=== PATIENT | male | born 1945 | race Caucasian/White ===

== ENCOUNTER → 2017-06-20 | Outpatient (REF) | payer MEDICARE | LOC: M LAB REF 12:10 | PROVIDERS: ATTEND Otolaryngology | DX: C44.310 Basal cell carcinoma of skin of unspecified parts of face (principal) ==

== ENCOUNTER → 2018-03-31 | Outpatient (REF) | payer MEDICARE | LOC: M LAB REF 18:35 | DX: L72.3 Sebaceous cyst (principal) | CPT/HCPCS: 88304 ==

== ENCOUNTER → 2018-08-14 | Outpatient (CLI) | payer MEDICARE ==
[2018-08-14 13:23] LABS: BLOOD UREA NITROGEN 15 MG/DL (7-18)
[2018-08-14 13:23] LABS: CREATININE FOR GFR 1.02 MG/DL (0.70-1.30); GLOMERULAR FILTRATION RATE > 60.0 (>42)
== END ==
LOC: M SMT 10:15
DX: Z01.812 Encounter for preprocedural laboratory examination (principal); J90 Pleural effusion, not elsewhere classified
CPT/HCPCS: 82565

== ENCOUNTER → 2018-08-17 | Outpatient (CLI) | payer MEDICARE ==
[~2018-08-17] MED LIST: ISOVUE-370 76% 100ML VIAL (Q9967) As Ordered
== END ==
LOC: M RAD 07:57
DX: R91.8 Other nonspecific abnormal finding of lung field (principal); J90 Pleural effusion, not elsewhere classified
CPT/HCPCS: Q9967

== ENCOUNTER → 2019-06-18 | Outpatient (CLI) | payer MEDICARE ==
--- NOTE | 2019-06-18 08:59 | REP ---
Abdominal mesenteric arterial Doppler ultrasound: History: Pain worse after meals. Evaluate for SMA and celiac stenosis. Comparison is made with CT angiography of the chest imaging from August 17, 2018. Technique: Baseline Doppler velocities are measured in the celiac axis as well as in the proximal and mid superior mesenteric artery. The SMA arterial segments are sampled postprandial E at 10, 20, 30, and 40 minutes after meal challenge. Results: The velocities in the superior mesenteric artery increase in response to mail challenge and normal proportion however, peak systolic velocities in the superior mesenteric are quite high. Review of the CT study from July 2018 suggests stenosis just beyond the origin of the superior mesenteric artery. There is some calcific plaquing at its origin. Minimal plaquing is seen in the celiac origin without stenosis. Velocity chart: Baseline: Celiac axis PSV 113 cm/S, EDV 35 cm/S Baseline proximal SMA: PSV 183 cm/S, EDV 28 Baseline mid SMA: PSV 227, EDV 36 10 minutes post meal: Proximal SMA 256 cm/S, EDV 73 10 minutes post meal: Mid SMA PSV 432 cm/S, EDV 114 20 minutes post meal: Proximal SMA PSV 370, EDV 127 20 minutes post meal: Mid SMA PSV 636 cm/S, EDV 169 30 minutes post meal: Proximal SMA PSV 349 cm/S, EDV 99 30 minutes post meal: Mid SMA PSV 553, EDV 167 40 minutes post meal: Proximal SMA 322 cm/S, EDV 109 40 minutes post meal: Mid SMA PSV 408 cm/S, EDV 113 Impression: Findings suggestive of moderate SMA stenosis. Electronically Signed by Yoandy Willard MD 06/18/2019 08:50 A
== END ==
LOC: M RAD 06:20
PROVIDERS: ATTEND Internal Medicine Gastroenterology
DX: R10.12 Left upper quadrant pain (principal); I70.90 Unspecified atherosclerosis

== ENCOUNTER → 2019-07-25 | Outpatient (REF) | payer MEDICARE, BC | LOC: M SFHCPLAZ 19:28 | PROVIDERS: ATTEND Dermatology | DX: D23.30 Other benign neoplasm of skin of unspecified part of face (principal) ==

== ENCOUNTER → 2020-05-20 | Outpatient (CLI) | payer MEDICARE, BC ==
[~2020-05-20] MED LIST changes: +ALPR0.25 PO; +ASPI81TA26 PO; +CLOP75TA2 PO; -ISOVUE-370 76% 100ML VIAL (Q9967) As Ordered; +META1POW PO; +OMEP-218 PO; +ROSU5TAB5 PO; +VITMTA PO
--- NOTE | 2020-05-20 10:49 | REP ---
Clinical: Superior mesenteric artery stenosis. Technique: Real time vizcaino scale and color Doppler evaluation using curved array transducer. Findings: Directed ultrasound examination demonstrates superior mesenteric artery stent with normal flow characteristics and velocities. There is no evidence for superior mesenteric artery stenosis. Ultrasound examination of the celiac axis also demonstrates normal flow characteristics and velocities without stenosis or abnormality. Peak systolic velocity End-diastolic velocity Proximal SMA: 82 cm/sec 13 cm/sec Mid SMA: 105 cm/sec 22 cm/sec Celiac axis: 104 cm/sec 31 cm/sec Impression: No evidence for superior mesenteric artery stenosis. Electronically Signed by Scotty Cerna MD 05/20/2020 10:40 A
== END ==
LOC: M RAD 08:21
PROVIDERS: ATTEND Surgery
DX: K55.1 Chronic vascular disorders of intestine (principal)

== ENCOUNTER 2020-09-09 09:27 | Observation (INO) | payer BC, MEDICARE ==
[~2020-09-09] VITALS: Ht 170.2 cm; Wt 65.5 kg
[~2020-09-09 09:27] MED LIST changes: -ALPR0.25 PO; -ASPI81TA26 PO; -CLOP75TA2 PO; -META1POW PO; -OMEP-218 PO; +OMEPRAZOLE 20 MG CAP PO SCH; -ROSU5TAB5 PO; -VITMTA PO
[2020-09-09] MEDS ORDERED: OMEP-218 PO (10:04)
[2020-09-09] MEDS ORDERED: ROSU5TAB5 PO (10:04)
[2020-09-09] MEDS ORDERED: ALPR0.25 PO (10:04)
[2020-09-09] MEDS ORDERED: CLOP75TA2 PO (10:04)
[2020-09-09 10:14] LABS: BASO # 0.1 10^3/uL (0.0-0.2); BASO % 0.9 % (0.0-1.0); EOS # 0.2 10^3/uL (0.0-0.5); EOS % 3.6 % (0.0-3.0); HEMATOCRIT 44.8 % (42.0-52.0); HEMOGLOBIN 15.4 g/dl (13.5-17.5); LYMPH # 1.7 10^3/uL (1.5-5.0); LYMPH % 29.9 % (24.0-44.0); MEAN CORPUSCULAR HEMOGLOBIN 32.6 pg (27.0-33.0); MEAN CORPUSCULAR HGB CONC 34.4 g/dl (32.0-36.5); MEAN CORPUSCULAR VOLUME 94.9 fl (80.0-96.0); MONO # 0.5 10^3/uL (0.0-0.8); MONO % 8.4 % (0.0-5.0); NEUTROPHILS # 3.3 10^3/uL (1.5-8.5); PLATELET COUNT, AUTOMATED 197 10^3/uL (150-450); RED BLOOD COUNT 4.72 10^6/uL (4.30-6.10); WHITE BLOOD COUNT 5.8 10^3/uL (4.0-10.0)
--- NOTE | 2020-09-09 10:17 | REP ---
INDICATION: Syncope/near-syncope. COMPARISON: Comparison chest x-ray May 30, 2015.. TECHNIQUE: Portable AP sitting radiograph. FINDINGS: Monitoring electrodes overlie the chest. A dual lead pacemaker is been inserted via the left subclavian vein in the interval since the prior exam. Heart is not enlarged. The aorta is slightly tortuous. Pulmonary vasculature is not increased. Pleural angles are sharp. No significant bony abnormality. IMPRESSION: Pacemaker in place. No acute cardiopulmonary disease. <Electronically signed by Singh Willard > 09/09/20 [id number]
[2020-09-09] MEDS ORDERED: VITMTA PO (10:27)
[2020-09-09] MEDS ORDERED: ASPI81TA26 PO (10:27)
[2020-09-09 10:35] LABS: INR 1.07; PARTIAL THROMBOPLASTIN TIME 30.9 SECONDS (24.2-38.5); PROTHROMBIN TIME 14.1 SECONDS (12.5-14.3)
[2020-09-09 10:50] LABS: ALBUMIN 4.4 GM/DL (3.2-5.2); BILIRUBIN,DIRECT 0.3 MG/DL (0.0-0.2); BILIRUBIN,TOTAL 1.2 MG/DL (0.2-1.0); FREE T4 1.06 NG/DL (0.76-1.46); MAGNESIUM LEVEL 2.4 MG/DL (1.8-2.4); THYROID STIMULATING HORMONE 3.36 uIU/ML (0.358-3.740); TOTAL PROTEIN 7.5 GM/DL (6.4-8.2)
[2020-09-09] MEDS ORDERED: META1POW PO (10:59)
--- NOTE | 2020-09-09 11:50 | REP ---
INDICATION: syncopal episode. COMPARISON: None. TECHNIQUE: Helical scanning is acquired. 5 mm axial images were reformatted. Coronal MPR images were generated. FINDINGS: Bone window settings demonstrate an intact bony calvarium. There is no evidence of skull fracture or incidental bony calvarial lesion. The visualized paranasal sinuses appear clear. No intraorbital abnormality is seen. There is prominent vascular calcification and minimal generalized volume loss. There is a focal area of old encephalomalacia consistent with an old infarct in the right temporoparietal lobe with ex vacuo enlargement of the temporal horn of the lateral ventricle on the right. No acute infarction is appreciated. There is no evidence of acute intracranial hemorrhage. No extra-axial fluid collection, mass or midline shift is observed. IMPRESSION: Vascular calcification and mild generalized volume loss. 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 No acute infarct or bleed seen. Otherwise negative.. <Electronically signed by Singh Willard > 09/09/20 3021
[2020-09-09] MEDS ORDERED: ISOVUE-370 76% 100ML VIAL As Ordered ONE (12:51)
--- NOTE | 2020-09-09 14:27 | REP ---
INDICATION: rule out mesenteric thrombosis/ischemia COMPARISON: CT abdomen 07/09/2010. TECHNIQUE: CT angiogram of the abdomen and pelvis was performed with intravenous administration of 100 cc of Isovue 370, without oral contrast. 3D MIP reconstruction images performed. FINDINGS: Abdominal aorta and major branches: Scattered atherosclerotic calcifications without aneurysm or dissection noted. Takeoff of the SMA and celiac axis shows no evidence of stenosis on the 3D reconstruction, direct axial or curved reformatted images. There are small calcifications at the origin of the celiac axis and the SMA. There is some atherosclerotic calcification at the origin of the right renal artery without stenosis. Left renal artery was normal. There is an CLAUDINE visible. Lower thoracic aorta, common iliac and internal iliac arteries show some atherosclerotic calcifications without stenosis. The external iliac arteries were unremarkable. Lung bases: Minor dependent atelectatic change without infiltrate or effusion. Heart is not enlarged and shows a dual lead pacer with lead tips no pericardial thickening or effusion. Terminating in the right atrium and right ventricle. Liver: Normal Gallbladder: Unremarkable. Spleen: Normal. Adrenals: Normal. Pancreas: Normal. Kidneys: Show renal cysts similar to the previous study. No solid mass, hydronephrosis or stone. No hydroureter. Small and large bowel: Moderate stool scattered throughout the colon with no colitis or diverticulitis. There is diverticulosis of the left colon and sigmoid without acute inflammatory change. Small bowel loops are unremarkable. There is no perforation or free air in the abdomen or pelvis. Surgical clips in the abdominal wall from mesh hernia surgery. These are unchanged. Free fluid: None. Adenopathy: None. Appendix: Not inflamed. Pelvis: No pelvic mass. There is some pelvic surgical clips from prior prostatectomy. Extensive diverticulosis without diverticulitis in the sigmoid small bowel loops unremarkable no ventral or inguinal hernia nor inguinal adenopathy. Osseous structures: Degenerative changes in the spine without compression deformity or destructive lesion. Facet arthropathy lower lumbar levels. Visualized lower ribs intact. Sacrum, SI joints, pelvis hips, pubic bones and acetabular the show some degenerative changes without destructive lesion. Some postoperative changes in the right inguinal region. No hernia. Bladder without mass or stone. There are multiple pelvic phleboliths IMPRESSION: Mild atherosclerotic disease of the abdominal aorta and branches without evidence for mesenteric ischemia. No stenosis at the origin of the SMA or celiac axis nor any significant stenosis and renal arteries. No signs of ski juliana bowel disease. Few renal cysts. Prior abdominal wall and right inguinal hernia surgery,. Unchanged. No other significant or acute finding. <Electronically signed by Joe Jaramillo > 09/09/20 [id number]
[2020-09-09] MEDS ORDERED: ACETAMINOPHEN TAB 650MG DOSE (2X325MG) PO PRN (15:00)
[2020-09-09] MEDS ORDERED: PILL CUTTER 1 EACH XX PRN (15:15)
--- NOTE | 2020-09-09 15:18 | HPEPDOC ---
General Date of Admission 09/09/20 Date of Service: Sep 09, 2020 Chief Complaint The patient is a 75-year-old male admitted with a reason for visit of Syncope, Chest Pain. Source: Patient Exam Limitations: No limitations Timing/Duration: 24 hours Severity: Mild Associated Symptoms: Syncope History of Present Illness Patient is 75 years old male with past medical history of mesenteric thrombosis with stent placement, radical prostatectomy, cardiac pacemaker placement on 08/2018 presented to the hospital with syncope. Patient stated that earlier today he started feeling sick nausea and lightheadedness and then he syncopized. He didn't hit his head because his friend caught him. Also patient complains of dull epigastric abdominal pain for last 3-4 weeks. In ER patient was found to have positive orthostatic vital signs, CTA mild atherosclerotic disease of the abdominal aorta and branches without evidence for mesenteric ischemia. No stenosis at the origin of the SMA or celiac axis nor any significant stenosis and renal arteries. No signs of ski juliana bowel disease. Home Medications Scheduled Alprazolam (Alprazolam) 0.25 Mg Tablet, 0.25 MG PO TID, (Reported) Aspirin (Aspirin EC) 81 Mg Tablet.dr, 81 MG PO DAILY, (Reported) Clopidogrel Bisulfate (Clopidogrel) 75 Mg Tablet, 75 MG PO DAILY, (Reported) TAKES AT NOONTIME Multivitamins (Thera M Plus Tablet) 1 Each Tablet, 1 TAB PO DAILY, (Reported) Omeprazole (Omeprazole) 20 Mg Capsule.dr, 20 MG PO DAILY, (Reported) Psyllium Husk/Aspartame (Metamucil Fiber Singles Packet) 3.4 Gm Powd.pack, 1 PKT PO DAILY, (Reported) Rosuvastatin Calcium (Rosuvastatin Calcium) 5 Mg Tablet, 5 MG PO QHS, (Reported) Allergies Coded Allergies: Penicillins (Verified Allergy, Intermediate, rash, 09/09/20) bee venom protein (honey bee) (Verified Allergy, Intermediate, swelling, 09/09/20) shellfish derived (Verified Adverse Reaction, Mild, itchy and watery eyes, 09/09/20) Past Medical History Medical History mesenteric thrombosis with stent placement, prostate cancer, cardiac pacemaker placement Surgical History PROSTATECTOMY 2005 INGUINAL HERNIA REPAIR UMBILICAL HERNIA REPAIR CARDIAC PACEMEKER 08/2018 Family History I personally reviewed family history and found not pertinent Social History * Smoker: Denies Alcohol: Denies Drugs: denies A-FIB/CHADSVASC A-FIB History Current/History of A-Fib/PAF?: No Current PO Anticoag Therapy: No Review of Systems Constitutional: Denies: Chills, Fever Eyes: Denies: Pain ENT: Denies: Head Aches Skin: Denies: Rash, Lesions Pulmonary: Denies: Dyspnea Cardiovascular: Denies: Chest Pain, Palpitations Gastrointestinal: Reports: Abdominal Pain; Denies: Nausea, Vomiting Genitourinary: Denies: Dysuria Hematologic: Denies: Bruising Endocrine: Denies: Polydipsia Musculoskeletal: Denies: Back Pain Neurological: Denies: Weakness Psych: Reports: Mood Normal Physical Examination General Exam: Positive: Alert, Cooperative Eye Exam: Positive: PERRLA ENT Exam: Positive: Atraumatic Neck Exam: Positive: Supple; Negative: JVD Chest Exam: Positive: Clear to auscultation Heart Exam: Positive: Rate Normal Telemetry: Positive: No significant arrhythmia Abdomen Exam: Positive: Normal bowel sounds Extremity Exam: Negative: Clubbing, Cyanosis Skin Exam: Positive: Nl turgor and temperature Neuro Exam: Positive: Normal Gait, Strength at 5/5 X4 ext Psych Exam: Positive: Mental status NL Vital Signs Vital Signs Date Time Temp Pulse Resp B/P (MAP) Pulse Ox O2 Delivery O2 Flow Rate FiO2 09/09/20 14:30 63 145/83 (103) 99 09/09/20 09:28 97.4 20 Room Air Laboratory Data Labs 24H Laboratory Tests 2 09/09/20 09:49: Immature Granulocyte % (Auto) 0.2, Neutrophils (%) (Auto) 57.0, Lymphocytes (%) (Auto) 29.9, Monocytes (%) (Auto) 8.4H, Eosinophils (%) (Auto) 3.6H, Basophils (%) (Auto) 0.9, Neutrophils # (Auto) 3.3, Lymphocytes # (Auto) 1.7, Monocytes # (Auto) 0.5, Eosinophils # (Auto) 0.2, Basophils # (Auto) 0.1, Nucleated Red Blood Cells % (auto) 0.0, Prothrombin Time 14.1H, Prothromb Time International Ratio 1.07, Activated Partial Thromboplast Time 30.9, Magnesium Level 2.4, Total Bilirubin 1.2H, Direct Bilirubin 0.3H, Aspartate Amino Transf (AST/SGOT) 21, Alanine Aminotransferase (ALT/SGPT) 21, Alkaline Phosphatase 77, Total Protein 7.5, Albumin 4.4, Albumin/Globulin Ratio 1.4, Thyroid Stimulating Hormone (TSH) 3.360, Free Thyroxine 1.06 09/09/20 10:24: Coronavirus (COVID-19)(PCR) NEGATIVE CBC/BMP Laboratory Tests 09/09/20 09:49 Assessment/Plan Patient is 75 years old male with past medical history of mesenteric thrombosis with stent placement, radical prostatectomy, cardiac pacemaker placement on 08/2018 presented to the hospital with syncope. Patient stated that earlier today he started feeling sick nausea and lightheadedness and then he syncopized. He didn't hit his head because his friend caught him. Also patient complains of dull epigastric abdominal pain for last 3-4 weeks. In ER patient was found to have positive orthostatic vital signs, CTA mild atherosclerotic disease of the abdominal aorta and branches without evidence for mesenteric ischemia. No stenosis at the origin of the SMA or celiac axis nor any significant stenosis and renal arteries. No signs of ski juliana bowel disease. Problems (1) Syncope Status: Acute Problem Text: Most likely orthostatic syncope. Patient stated that after radical prostatectomy he has nocturia up to 5-6 times per night. He tried to restrict his fluid intake. Telemetry EKG does not show any ischemic changes IV fluid PT OT (2) Abdominal pain Status: Chronic Problem Text: Patient complains of epigastric abdominal pain CTA negative for mesenteric thrombosis I will increase the dose of omeprazole I will check H. pylori Patient will need to need follow-up with GI team in the outpatient settings Plan / VTE VTE Prophylaxis Ordered?: Yes JULIAN SOMMERS DO Sep 09, 2020 15:18
--- NOTE | 2020-09-09 16:36 | ECGEPIP ---
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
[2020-09-09 17:50] VITALS: BP 150/86
[2020-09-09] MEDS: ASPIRIN 81 MG ENTERIC TAB PO SCH (18:11)
[2020-09-09] MEDS: ALPRAZolam 0.25 MG TAB PO SCH ×2 (18:12→20:32)
[2020-09-09] MEDS: CLOPIDOGREL 75 MG TAB PO SCH (18:12)
[2020-09-09] MEDS: NS 1,000 ML IV SCH ×2 (18:12→23:50)
[2020-09-09] MEDS: MULTIVITAMINS/MINERALS THERAP 1 TAB PO SCH (18:12)
[2020-09-09] MEDS ORDERED: SLF 3 ML SYR IV PRN (18:30)
[2020-09-09 20:00] VITALS: BP 141/81
[2020-09-09] MEDS: HEPARIN SOD (PORCINE) 5000UNITS/ML 1ML VIAL/SYRINGE SC SCH ×2 (20:32→20:34)
[2020-09-09] MEDS: SLF 3 ML SYR IV SCH (20:32)
[2020-09-09] MEDS ORDERED: ROSUVASTATIN 10 MG TAB (CRESTOR) PO SCH (21:00)
[2020-09-10] VITALS: BP 135/69
[2020-09-10] MEDS: SLF 3 ML SYR IV SCH (04:58)
[2020-09-10 05:39] LABS: HEMATOCRIT 38.4 % (42.0-52.0); MEAN CORPUSCULAR HEMOGLOBIN 33.2 pg (27.0-33.0); MEAN CORPUSCULAR HGB CONC 34.6 g/dl (32.0-36.5); MEAN CORPUSCULAR VOLUME 95.8 fl (80.0-96.0); PLATELET COUNT, AUTOMATED 160 10^3/uL (150-450); RED BLOOD COUNT 4.01 10^6/uL (4.30-6.10); WHITE BLOOD COUNT 5.4 10^3/uL (4.0-10.0)
[2020-09-10 05:47] LABS: HEMOGLOBIN 13.3 g/dl (13.5-17.5)
[2020-09-10 06:14] LABS: BLOOD UREA NITROGEN 14 MG/DL (7-18); CALCIUM LEVEL 8.3 MG/DL (8.8-10.2); CARBON DIOXIDE LEVEL 26 MEQ/L (21-32); CHLORIDE LEVEL 110 MEQ/L (98-107); CREATININE FOR GFR 0.93 MG/DL (0.70-1.30); GLOMERULAR FILTRATION RATE > 60.0 (>42); GLUCOSE, FASTING 64 MG/DL (70-100); MAGNESIUM LEVEL 2.3 MG/DL (1.8-2.4); POTASSIUM SERUM 4.4 MEQ/L (3.5-5.1); SODIUM LEVEL 140 MEQ/L (136-145)
[2020-09-10 07:40] VITALS: BP 148/75
[2020-09-10] MEDS: MULTIVITAMINS/MINERALS THERAP 1 TAB PO SCH ×2 (09:00→09:55)
[2020-09-10] MEDS: HEPARIN SOD (PORCINE) 5000UNITS/ML 1ML VIAL/SYRINGE SC SCH ×2 (09:00→09:58)
[2020-09-10] MEDS: OMEPRAZOLE 20 MG CAP PO SCH ×2 (09:00→09:57)
[2020-09-10] MEDS: CLOPIDOGREL 75 MG TAB PO SCH ×2 (09:00→09:55)
[2020-09-10] MEDS: ALPRAZolam 0.25 MG TAB PO SCH ×2 (09:00→09:55)
[2020-09-10] MEDS: ASPIRIN 81 MG ENTERIC TAB PO SCH ×2 (09:00→09:55)
--- NOTE | 2020-09-10 15:51 | DS.PDOC ---
Discharge Summary General Date of Admission Sep 09, 2020 at 09:28 Date of Discharge 09/10/20 Discharge Summary PROCEDURES PERFORMED DURING STAY: [None]. ADMITTING DIAGNOSES: Syncope Abdominal pain DISCHARGE DIAGNOSES: Syncope Abdominal pain COMPLICATIONS/CHIEF COMPLAINT: Syncope. HISTORY OF PRESENT ILLNESS: Patient is 75 years old male with past medical history of mesenteric thrombosis with stent placement, radical prostatectomy, cardiac pacemaker placement on 08/2018 presented to the hospital with syncope. Patient stated that earlier today he started feeling sick nausea and lightheadedness and then he syncopized. He didn't hit his head because his friend caught him. Also patient complains of dull epigastric abdominal pain for last 3-4 weeks. In ER patient was found to have positive orthostatic vital signs, CTA mild atherosclerotic disease of the abdominal aorta and branches without evidence for mesenteric ischemia. No stenosis at the origin of the SMA or celiac axis nor any significant stenosis and renal arteries. No signs of ski juliana bowel disease. HOSPITAL COURSE: Following issue addressed Syncope Most likely orthostatic syncope. Patient stated that after radical prostatectomy he has nocturia up to 5-6 times per night. He tried to restrict his fluid intake. Telemetry EKG does not show any ischemic changes IV fluid PT OT (2) Abdominal pain Patient complains of epigastric abdominal pain CTA negative for mesenteric thrombosis I will increase the dose of omeprazole Await H. pylori Patient will need to need follow-up with GI team in the outpatient settings DISCHARGE MEDICATIONS: Please see below. ALLERGIES: Please see below. PHYSICAL EXAMINATION ON DISCHARGE: Physical Examination General Exam: Positive: Alert, Cooperative Eye Exam: Positive: PERRLA ENT Exam: Positive: Atraumatic Neck Exam: Positive: Supple; Negative: JVD Chest Exam: Positive: Clear to auscultation Heart Exam: Positive: Rate Normal Telemetry: Positive: No significant arrhythmia Abdomen Exam: Positive: Normal bowel sounds Extremity Exam: Negative: Clubbing, Cyanosis Skin Exam: Positive: Nl turgor and temperature Neuro Exam: Positive: Normal Gait, Strength at 5/5 X4 ext Psych Exam: Positive: Mental status NL LABORATORY DATA: Please see below. IMAGING: rule out mesenteric thrombosis/ischemia COMPARISON: CT abdomen 07/09/2010. TECHNIQUE: CT angiogram of the abdomen and pelvis was performed with intravenous administration of 100 cc of Isovue 370, without oral contrast. 3D MIP reconstruction images performed. FINDINGS: Abdominal aorta and major branches: Scattered atherosclerotic calcifications without aneurysm or dissection noted. Takeoff of the SMA and celiac axis shows no evidence of stenosis on the 3D reconstruction, direct axial or curved reformatted images. T here are small calcifications at the origin of the celiac axis and the SMA. There is some atherosclerotic calcification at the origin of the right renal artery without stenosis. Left renal artery was normal. There is an CLAUDINE visible. Lower thoracic aorta, common iliac and internal iliac arteries show some atherosclerotic calcifications without stenosis. The external iliac arteries were unremarkable. Lung bases: Minor dependent atelectatic change without infiltrate or effusion. Heart is not enlarged and shows a dual lead pacer with lead tips no pericardial thickening or effusion. Terminating in the right atrium and right ventricle. Liver: Normal Gallbladder: Unremarkable. Spleen: Normal. Adrenals: Normal. Pancreas: Normal. Kidneys: Show renal cysts similar to the previous study. No solid mass, hydronephrosis or stone. No hydroureter. Small and large bowel: Moderate stool scattered throughout the colon with no colitis or diverticulitis. There is diverticulosis of the left colon and sigmoid without acute inflammatory change. Small bowel loops are unremarkable. There is no perforation or free air in the abdomen or pelvis. Surgical clips in the abdominal wall from mesh hernia surgery. These are unchanged. Free fluid: None. [facility] NAME: MARIMAR CORONA DATE OF : 1945 AGE: 75 SEX: M REPORT #: [id number] ROOM: ED TECHNOLOGIST: [place] [id number] DOCTOR: YOLANDE LEAL DO Ordered for Date&Time: 09/09/20 1237 cc: [~ rep ct ivnm] Service Date&Time: 09/09/20 1257 This report is in Signed status. If this report is in a DRAFT status it has not yet been reviewed by the radiologist for accuracy. Thank you for having your radiology procedures performed at [facility] RADIOLOGY REPORT Date&Time printed: [~ rep prt dt last] [~ rep prt tm last] Page 2 of [address] [address] RADIOLOGY REPORT This report is in Signed status. If this report is in a DRAFT status it has not yet been reviewed by the radiologist for accuracy. Thank you for having your radiology procedures performed at [facility] RADIOLOGY REPORT Date&Time printed: [~ rep prt dt last] [~ rep prt tm last] Page 1 of 1 Adenopathy: None. Appendix: Not inflamed. Pelvis: No pelvic mass. There is some pelvic surgical clips from prior prostatectomy. Extensive diverticulosis without diverticulitis in the sigmoid small bowel loops unremarkable no ventral or inguinal hernia nor inguinal adenopathy. Osseous structures: Degenerative changes in the spine without compression deformity or destructive lesion. Facet arthropathy lower lumbar levels. Visualized lower ribs intact. Sacrum, SI joints, pelvis hips, pubic bones and acetabular the show some degenerative changes without destructive lesion. Some postoperative changes in the right inguinal region. No hernia. Bladder without mass or stone. There are multiple pelvic phleboliths IMPRESSION: Mild atherosclerotic disease of the abdominal aorta and branches without evidence for mesenteric ischemia. No stenosis at the origin of the SMA or celiac axis nor any significant stenosis and renal arteries. No signs of ski juliana bowel disease. Few renal cysts. Prior abdominal wall and right inguinal hernia surgery,. Unchanged. No other significant or acute finding. <Electronically signed by Joe Jaramillo > 09/09/20 1423 DD: Joe Jaramillo MD 09/09/20 141 DT: CECILE 09/09/20 142 DS: BECKI 09/09/20 1411 09/09/20 1411 [~ rep ct labl] PROGNOSIS: Fair ACTIVITY: As tolerated DIET: Cardiac DISPOSITION: 01 Home, Self-Care. ITEMS TO FOLLOWUP ON ON OUTPATIENT: Follow-up with PCP DISCHARGE CONDITION: [Stable]. TIME SPENT ON DISCHARGE: Greater than 30 minutes. Vital Signs/I&Os Vital Signs Date Time Temp Pulse Resp B/P (MAP) Pulse Ox O2 Delivery O2 Flow Rate FiO2 09/10/20 07:40 98.9 66 18 148/75 (99) 99 Room Air I&O- Last 24 Hours up to 6 AM 09/10/20 06:00 Intake Total 0 ml Output Total 375 ml Balance -375 ml Laboratory Data Labs 24H Laboratory Tests 2 09/09/20 19:20: 09/10/20 05:10: Nucleated Red Blood Cells % (auto) 0.0, Anion Gap 4L, Glomerular Filtration Rate > 60.0, Calcium Level 8.3L, Magnesium Level 2.3 09/10/20 09:47: Lab Scanned Report Miscellaneous Lab CBC/BMP Laboratory Tests 09/10/20 05:10 Discharge Medications Scheduled Alprazolam (Alprazolam) 0.25 Mg Tablet, 0.25 MG PO TID, (Reported) Aspirin (Aspirin EC) 81 Mg Tablet.dr, 81 MG PO DAILY, (Reported) Clopidogrel Bisulfate (Clopidogrel) 75 Mg Tablet, 75 MG PO DAILY, (Reported) TAKES AT NOONTIME Multivitamins (Thera M Plus Tablet) 1 Each Tablet, 1 TAB PO DAILY, (Reported) Omeprazole (Omeprazole) 20 Mg Capsule.dr, 20 MG PO DAILY, (Reported) Psyllium Husk/Aspartame (Metamucil Fiber Singles Packet) 3.4 Gm Powd.pack, 1 PKT PO DAILY, (Reported) Rosuvastatin Calcium (Rosuvastatin Calcium) 5 Mg Tablet, 5 MG PO QHS, (Reported) Allergies Coded Allergies: Penicillins (Verified Allergy, Intermediate, rash, 09/09/20) bee venom protein (honey bee) (Verified Allergy, Intermediate, swelling, 09/09/20) shellfish derived (Verified Adverse Reaction, Mild, itchy and watery eyes, 09/09/20) JULIAN SOMMERS DO Sep 10, 2020 15:51
== END 2020-09-10 12:26 | disposition home or self-care (01) ==
LOC: M ED 09:27 → M ED INP 09:28 → ENRESERV 15:59 → M PCU 18:00
PROVIDERS: ADMIT Internal Medicine; ATTEND Internal Medicine
DX: R55 Syncope and collapse (principal); R10.9 Unspecified abdominal pain; Z95.0 Presence of cardiac pacemaker; Z88.0 Allergy status to penicillin; Z79.82 Long term (current) use of aspirin; Z79.899 Other long term (current) drug therapy; Z91.013 Allergy to seafood; Z91.030 Bee allergy status
CPT/HCPCS: 36415; 70450; 71045; 74174; 80047; 80048; 80076; 83605; 83735; 84439; 84443; 84484; 85025; 85027; 85610; 85730; 87338; 93005; 93041; 94760; 96360; 96361; 97161; 99285; G0378; Q9967; U0002

== ENCOUNTER → 2021-02-04 | Outpatient (CLI) | payer MEDICARE ==
[~2021-02-04] MED LIST changes: +ALPR0.25 PO; +ASPI81TA26 PO; +CLOP75TA2 PO; +META1POW PO; +OMEP-218 PO; -OMEPRAZOLE 20 MG CAP PO SCH; +ROSU5TAB5 PO; +VITMTA PO
--- NOTE | 2021-02-04 09:35 | REP ---
INDICATION: SUPERIOR MESENTERIC ATERY STENOSIS COMPARISON: 05/20/2020 TECHNIQUE: Real time viczaino scale ultrasound examination using curved array transducer. Color Doppler evaluation performed. FINDINGS: Patient is status post superior mesenteric artery stent placement which appears patent. Proximal superior mesenteric artery demonstrates normal arterial wave pattern with a peak systolic velocity at 105 cm/sec and end-diastolic velocity at 15.3 cm/sec. Mid superior mesenteric artery demonstrates normal arterial wave pattern with a peak systolic velocity of 121 cm/sec. IMPRESSION: Patent superior mesenteric artery and stent. <Electronically signed by Scotty Cerna > 02/04/21 0931
== END ==
LOC: M RAD 08:08
PROVIDERS: ATTEND Surgery
DX: K55.1 Chronic vascular disorders of intestine (principal)

== ENCOUNTER → 2021-02-28 | Outpatient (CLI) | payer MEDICARE | LOC: M LABSMTC 10:18 | PROVIDERS: ATTEND Anesthesiology | DX: Z01.818 Encounter for other preprocedural examination (principal); Z20.822 Contact with and (suspected) exposure to COVID-19 ==

== ENCOUNTER 2021-03-05 10:16 | Day surgery (SDC) | payer MEDICARE ==
[~2021-03-05] VITALS: Ht 170.2 cm; Wt 61.7 kg
[~2021-03-05 10:16] MED LIST changes: +NS 1,000 ML IV ONE
[2021-03-05] MEDS ORDERED: LIDOCAINE 2% MDV 20ML VIAL As Ordered ONE (11:51)
[2021-03-05] MEDS ORDERED: propofoL 200 MG/20 ML VIAL As Ordered ONE (11:51)
[2021-03-05] MEDS ORDERED: fentaNYL 100 MCG/2 ML INJECTION (J3010) As Ordered ONE (11:51)
--- NOTE | 2021-03-05 12:08 | ROOR ---
Patient Name: Frank Teixeira Procedure Date: 03/05/2021 11:49 AM Date of : 1945 Age: 76 Room: [facility] Gender: Male Note Status: Finalized Procedure: Upper GI endoscopy Indications: Epigastric abdominal pain Providers: Carlton Alamo Jr, MD Referring MD: TRISTAN BEEBE DO Requesting Provider: Medicines: Propofol per Anesthesia Complications: No immediate complications. Procedure: Pre-Anesthesia Assessment: - Prior to the procedure, a History and Physical was performed, and patient medications and allergies were reviewed. The patient is competent. The risks and benefits of the procedure and the sedation options and risks were discussed with the patient. All questions were answered and informed consent was obtained. Patient identification and proposed procedure were verified by the physician and the nurse in the pre-procedure area and in the procedure room. Mental Status Examination: alert and oriented. Airway Examination: normal oropharyngeal airway and neck mobility. Respiratory Examination: clear to auscultation. CV Examination: normal. ASA Grade Assessment: II - A patient with mild systemic disease. After reviewing the risks and benefits, the patient was deemed in satisfactory condition to undergo the procedure. The anesthesia plan was to use moderate sedation / analgesia (conscious sedation). Immediately prior to administration of medications, the patient was re-assessed for adequacy to receive sedatives. The heart rate, respiratory rate, oxygen saturations, blood pressure, adequacy of pulmonary ventilation, and response to care were monitored throughout the procedure. The physical status of the patient was re-assessed after the procedure. The Endoscope was introduced through the mouth, and advanced to the second part of duodenum. The upper GI endoscopy was accomplished without difficulty. The patient tolerated the procedure well. Findings: The upper third of the esophagus, middle third of the esophagus and lower third of the esophagus were normal. Abnormal motility was noted in the middle third of the esophagus. There is spasticity of the esophageal body. The distal esophagus/lower esophageal sphincter is open. The cardia, gastric fundus, gastric body, gastric antrum, prepyloric region of the stomach and pylorus were normal. Patchy mildly erythematous mucosa without active bleeding and with no stigmata of bleeding was found in the duodenal bulb. Biopsies were taken with a cold forceps for histology. The first portion of the duodenum and second portion of the duodenum were normal. Impression: - Normal upper third of esophagus, middle third of esophagus and lower third of esophagus. - Abnormal esophageal motility, consistent with esophageal spasm. - Normal cardia, gastric fundus, gastric body, antrum, prepyloric region of the stomach and pylorus. - Erythematous duodenopathy. Biopsied. - Normal first portion of the duodenum and second portion of the duodenum. Recommendation: - Discharge patient to home (ambulatory). - Return to my office as previously scheduled. 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 All rights reserved. The codes documented in this report are preliminary and upon custodial operations manager review may be revised to meet current compliance requirements. Carlton Alamo MD Carlton Alamo Jr, MD 03/05/2021 12:07:27 PM Electronically signed by Carlton Alamo Jr, MD Number of Addenda: 0 Note Initiated On: 03/05/2021 11:49 AM Estimated Blood Loss: Estimated blood loss: none.
[2021-03-05 12:35] VITALS: BP 142/80
== END 2021-03-05 12:48 | disposition home or self-care (01) ==
LOC: M OPP 10:16
PROVIDERS: ATTEND Surgery
DX: K22.4 Dyskinesia of esophagus (principal); K31.89 Other diseases of stomach and duodenum; R10.13 Epigastric pain; Z95.5 Presence of coronary angioplasty implant and graft; Z79.82 Long term (current) use of aspirin; Z79.899 Other long term (current) drug therapy; Z91.030 Bee allergy status; Z91.013 Allergy to seafood; Z88.0 Allergy status to penicillin; Z85.46 Personal history of malignant neoplasm of prostate
CPT/HCPCS: 43239; 88305; J3010

== ENCOUNTER → 2021-04-10 | Outpatient (CLI) | payer MEDICARE ==
[~2021-04-10] MED LIST changes: +E-Z-GAS II EFFERVESCENT PACKET (SODIUM BICARB./CITRIC ACID/SIMETHICONE) As Ordered ONE; +E-Z-HD 98% w/w 340GM SUSP BTL As Ordered ONE; +E-Z-PAQUE 96% w/w SUSP 176GM BTL As Ordered ONE; -NS 1,000 ML IV ONE
--- NOTE | 2021-04-10 18:33 | REP ---
INDICATION: CHEST PAIN WITH SWALLOWING EPIGASTRIC PAIN. COMPARISON: None. TECHNIQUE: This procedure was performed under the direct supervision of Dr. Interiano. Images were reviewed with Dr. Interiano. Liquid barium and gas producing granules were given in the erect position as well as liquid barium in the prone oblique positions in order to perform a double contrast esophagram examination. A combination of fluoroscopy, spot films and last image hold technology was utilized. 0.9 minutes of fluoro time was utilized for this procedure. FINDINGS: A single view PA chest x-ray is submitted as a pocket and pulley machine operator film. There is no change compared to a previous chest x-ray performed on 09/09/2020. The oral and pharyngeal stages of deglutition are unremarkable. Esophageal transport is prompt and efficient. There is no stricture or mucosal ring. There is a sliding-type hiatal hernia. There is gastroesophageal reflux demonstrated to the level of the jason. There is a feline esophagus appearance which may represent early esophagitis. IMPRESSION: There is a sliding-type hiatal hernia. There is gastroesophageal reflux demonstrated to the level of the jason. There is a feline esophagus appearance which may represent early esophagitis. <Electronically signed by Aidan Gaspar > 04/10/21 [id number] <Electronically signed by Kael Interiano > 04/10/21 [id number]
== END ==
LOC: M RAD 08:24
PROVIDERS: ATTEND Surgery
DX: R10.13 Epigastric pain (principal); R07.9 Chest pain, unspecified

== ENCOUNTER → 2021-08-27 | Outpatient (CLI) | payer MEDICARE ==
[~2021-08-27] MED LIST changes: -E-Z-GAS II EFFERVESCENT PACKET (SODIUM BICARB./CITRIC ACID/SIMETHICONE) As Ordered ONE; -E-Z-HD 98% w/w 340GM SUSP BTL As Ordered ONE; -E-Z-PAQUE 96% w/w SUSP 176GM BTL As Ordered ONE
--- NOTE | 2021-08-27 11:29 | REP ---
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 COMPARISON: 02/04/2021. TECHNIQUE: Duplex Doppler evaluation of mesenteric arteries performed. FINDINGS: The peak systolic velocity in the superior abdominal aorta is 53 centimeters/second. 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 The peak systolic velocity at the origin of the superior mesenteric artery is 86 centimeter/second, mid aspect 132 to 149 cm per sec. At the origin of the celiac axis peak systolic velocity is 110-116 centimeter/second. At the origin of the inferior mesenteric artery the peak systolic velocity is 104 centimeter/second, more distally 157 centimeters/second. IMPRESSION: No duplex Doppler sonographic evidence of significant stenosis of the mesenteric arteries. <Electronically signed by Kael Interiano > 08/27/21 [id number]
== END ==
LOC: M RAD 08:51
PROVIDERS: ATTEND Surgery
DX: K55.1 Chronic vascular disorders of intestine (principal)

== ENCOUNTER 2021-09-19 22:12 | Inpatient (IN) | payer MEDICARE ==
[~2021-09-19] VITALS: Ht 170.2 cm; Wt 61.7 kg
[~2021-09-19 22:12] MED LIST changes: +OMEP-173 PO; -OMEP-218 PO
[2021-09-19 23:37] LABS: HEMATOCRIT 39.2 % (42.0-52.0); HEMOGLOBIN 13.1 g/dl (13.5-17.5); MEAN CORPUSCULAR HEMOGLOBIN 31.7 pg (27.0-33.0); MEAN CORPUSCULAR HGB CONC 33.4 g/dl (32.0-36.5); MEAN CORPUSCULAR VOLUME 94.9 fl (80.0-96.0); PLATELET COUNT, AUTOMATED 194 10^3/uL (150-450); RED BLOOD COUNT 4.13 10^6/uL (4.30-6.10); WHITE BLOOD COUNT 6.6 10^3/uL (4.0-10.0)
[2021-09-20 00:02] LABS: CK-MB VALUE MASS < 1.0 NG/ML (<3.6); CPK CREATINE PHOSPHOKINASE 62 U/L (39-308); MB/CK RELATIVE INDEX 1.61 (< OR =4); TROPONIN I < 0.02 NG/ML (< 0.10)
[2021-09-20 00:12] LABS: ACETAMINOPHEN LEVEL < 2.0 UG/ML (10.0-30.0); ALBUMIN 3.5 GM/DL (3.2-5.2); ALT/SGPT 18 U/L (12-78); BILIRUBIN,DIRECT 0.3 MG/DL (0.0-0.2); BILIRUBIN,TOTAL 1.1 MG/DL (0.2-1.0); BLOOD UREA NITROGEN 19 MG/DL (7-18); CALCIUM LEVEL 8.6 MG/DL (8.8-10.2); CARBON DIOXIDE LEVEL 29 MEQ/L (21-32); CHLORIDE LEVEL 108 MEQ/L (98-107); CREATININE FOR GFR 1.11 MG/DL (0.70-1.30); ETHYL ALCOHOL (ETHANOL) < 0.003 % (0.000-0.010); GLOMERULAR FILTRATION RATE > 60.0 (>42); GLUCOSE, FASTING 76 MG/DL (70-100); POTASSIUM SERUM 4.4 MEQ/L (3.5-5.1); SALICYLATE LEVEL < 1.7 MG/DL (5.0-30.0); SODIUM LEVEL 142 MEQ/L (136-145); TOTAL PROTEIN 6.5 GM/DL (6.4-8.2)
[2021-09-20] MEDS ORDERED: CLON0.5T2 PO (00:25)
[2021-09-20] MEDS ORDERED: HOME MED LIST COMPLETE! XX SCH (00:55)
[2021-09-20 01:52] LABS: RSV AMPLIFICATION NEGATIVE (NEGATIVE)
[2021-09-20] MEDS ORDERED: diazePAM 10MG/2ML SYRINGE (J3360 PER 5MG) IV PRN (04:10)
[2021-09-20] MEDS: ROSUVASTATIN 10 MG TAB (CRESTOR) PO SCH ×2 (07:21→20:41)
[2021-09-20] MEDS: MULTIVITAMINS/MINERALS THERAP 1 TAB PO SCH (09:01)
[2021-09-20] MEDS: ASPIRIN 81MG ENTERIC TABLET PO SCH (09:01)
[2021-09-20] MEDS: CLOPIDOGREL 75 MG TAB PO SCH (11:30)
[2021-09-20] MEDS: METAMUCIL (PSYLLIUM) PACKET PO SCH (11:30)
[2021-09-20] MEDS: clonazePAM 0.5 MG TAB PO SCH (11:30)
[2021-09-20] MEDS: OMEPRAZOLE 20MG CAP PO SCH (11:30)
[2021-09-20] MEDS: ENOXAPARIN 40MG/0.4ML SYRINGE (J1650 PER 10MG) SC SCH (11:31)
[2021-09-20 12:27] LABS: HEMATOCRIT 40.8 % (42.0-52.0); MEAN CORPUSCULAR HEMOGLOBIN 32.4 pg (27.0-33.0); MEAN CORPUSCULAR HGB CONC 34.3 g/dl (32.0-36.5); MEAN CORPUSCULAR VOLUME 94.4 fl (80.0-96.0); PLATELET COUNT, AUTOMATED 200 10^3/uL (150-450); RED BLOOD COUNT 4.32 10^6/uL (4.30-6.10); WHITE BLOOD COUNT 7.5 10^3/uL (4.0-10.0)
[2021-09-20 13:01] LABS: ALBUMIN 3.9 GM/DL (3.2-5.2); ALT/SGPT 20 U/L (12-78); BILIRUBIN,TOTAL 1.2 MG/DL (0.2-1.0); BLOOD UREA NITROGEN 15 MG/DL (7-18); CALCIUM LEVEL 9.3 MG/DL (8.8-10.2); CARBON DIOXIDE LEVEL 30 MEQ/L (21-32); CHLORIDE LEVEL 106 MEQ/L (98-107); CREATININE FOR GFR 0.91 MG/DL (0.70-1.30); GLOMERULAR FILTRATION RATE > 60.0 (>42); GLUCOSE, FASTING 94 MG/DL (70-100); MAGNESIUM LEVEL 2.6 MG/DL (1.8-2.4); POTASSIUM SERUM 4.3 MEQ/L (3.5-5.1); SODIUM LEVEL 140 MEQ/L (136-145); TOTAL PROTEIN 7.4 GM/DL (6.4-8.2)
[2021-09-20 16:00] VITALS: BP 150/77
[2021-09-20] MEDS: FOLIC ACID 1 MG TAB PO SCH (16:26)
[2021-09-20] MEDS: THIAMINE 100 MG TAB PO SCH (16:26)
[2021-09-20 19:00] VITALS: O2SAT 99
[2021-09-20 20:00] VITALS: BP 111/64; O2SAT 96
[2021-09-20 21:00] VITALS: O2SAT 96
[2021-09-20 22:00] VITALS: O2SAT 96
[2021-09-20 23:00] VITALS: O2SAT 95
[2021-09-21] VITALS: BP 101/56; O2SAT 96
[2021-09-21 04:00] VITALS: BP 100/56
[2021-09-21 08:00] VITALS: BP 118/70
[2021-09-21] MEDS: ASPIRIN 81MG ENTERIC TABLET PO SCH (08:21)
[2021-09-21] MEDS: ENOXAPARIN 40MG/0.4ML SYRINGE (J1650 PER 10MG) SC SCH (08:21)
[2021-09-21] MEDS: OMEPRAZOLE 20MG CAP PO SCH (08:22)
[2021-09-21] MEDS: MULTIVITAMINS/MINERALS THERAP 1 TAB PO SCH (08:22)
[2021-09-21] MEDS: FOLIC ACID 1 MG TAB PO SCH (08:22)
[2021-09-21] MEDS: THIAMINE 100 MG TAB PO SCH (08:22)
[2021-09-21] MEDS: clonazePAM 0.5 MG TAB PO SCH (08:22)
[2021-09-21 12:00] VITALS: BP 153/72
[2021-09-21] MEDS: METAMUCIL (PSYLLIUM) PACKET PO SCH (12:13)
[2021-09-21] MEDS: CLOPIDOGREL 75 MG TAB PO SCH (12:13)
[2021-09-21 16:00] VITALS: BP 117/64
[2021-09-21 20:00] VITALS: BP 108/57
[2021-09-21] MEDS: ROSUVASTATIN 10 MG TAB (CRESTOR) PO SCH (20:14)
[2021-09-22] VITALS (7 sets, daily range): BP systolic 107–135; BP diastolic 61–73; O2SAT 96–99
[2021-09-22] MEDS: ASPIRIN 81MG ENTERIC TABLET PO SCH (08:07)
[2021-09-22] MEDS: THIAMINE 100 MG TAB PO SCH (08:07)
[2021-09-22] MEDS: clonazePAM 0.5 MG TAB PO SCH (08:07)
[2021-09-22] MEDS: MULTIVITAMINS/MINERALS THERAP 1 TAB PO SCH (08:08)
[2021-09-22] MEDS: OMEPRAZOLE 20MG CAP PO SCH (08:08)
[2021-09-22] MEDS: FOLIC ACID 1 MG TAB PO SCH (08:08)
[2021-09-22] MEDS: ENOXAPARIN 40MG/0.4ML SYRINGE (J1650 PER 10MG) SC SCH (08:11)
[2021-09-22] MEDS: METAMUCIL (PSYLLIUM) PACKET PO SCH (08:14)
[2021-09-22] MEDS ORDERED: THIA100TA PO (11:14)
[2021-09-22] MEDS ORDERED: FOLI1TAB11 PO (11:14)
[2021-09-22] MEDS: CLOPIDOGREL 75 MG TAB PO SCH (12:10)
== END 2021-09-22 13:21 | DRG 918 ==
LOC: M ED 22:12 → M ED INP 09-20 00:28 → ENRESERV 09-20 14:26 → M PCU 09-20 15:50
PROVIDERS: ADMIT Internal Medicine; ATTEND Internal Medicine
DX: T42.4X2A Poisoning by benzodiazepines, intentional self-harm, initial encounter (principal); F10.10 Alcohol abuse, uncomplicated; K21.9 Gastro-esophageal reflux disease without esophagitis; F41.9 Anxiety disorder, unspecified; F32.9 Major depressive disorder, single episode, unspecified; Z86.73 Personal history of transient ischemic attack (TIA), and cerebral infarction without residual deficits; Z79.82 Long term (current) use of aspirin; Z79.899 Other long term (current) drug therapy; Z88.0 Allergy status to penicillin; Z91.030 Bee allergy status; Z91.013 Allergy to seafood; Z95.0 Presence of cardiac pacemaker; Z95.2 Presence of prosthetic heart valve; F17.200 Nicotine dependence, unspecified, uncomplicated; E16.2 Hypoglycemia, unspecified

== ENCOUNTER 2021-09-22 11:13 | Inpatient (IN) | payer MEDICARE ==
[~2021-09-22] VITALS: Ht 170.2 cm; Wt 61.2 kg
[~2021-09-22 11:13] MED LIST changes: +CLON0.5T2 PO
[2021-09-22] MEDS ORDERED: FOLI1TAB11 PO (11:14)
[2021-09-22] MEDS ORDERED: THIA100TA PO (11:14)
[2021-09-22] MEDS ORDERED: MAALOX 30 ML SUSP *UDC PO PRN (11:40)
[2021-09-22] MEDS ORDERED: IBUPROFEN 400MG TAB PO PRN (11:40)
[2021-09-22] MEDS ORDERED: MOM 30ML SUSPENSION UDC PO PRN (11:40)
[2021-09-22] MEDS ORDERED: HOME MED LIST COMPLETE! XX SCH (14:05)
[2021-09-22 19:12] VITALS: BP 151/80
[2021-09-22] MEDS: ROSUVASTATIN 10 MG TAB (CRESTOR) PO SCH (20:13)
[2021-09-23 06:28] VITALS: BP 134/65
[2021-09-23] MEDS: ASPIRIN 81MG ENTERIC TABLET PO SCH (08:02)
[2021-09-23] MEDS: FOLIC ACID 1 MG TAB PO SCH (08:02)
[2021-09-23] MEDS: clonazePAM 0.5 MG TAB PO SCH (08:02)
[2021-09-23] MEDS: METAMUCIL (PSYLLIUM) PACKET PO SCH (08:02)
[2021-09-23] MEDS: MULTIVITAMINS/MINERALS THERAP 1 TAB PO SCH (08:02)
[2021-09-23] MEDS: THIAMINE 100 MG TAB PO SCH (08:02)
[2021-09-23] MEDS: OMEPRAZOLE 20MG CAP PO SCH (08:03)
[2021-09-23] MEDS ORDERED: CLOPIDOGREL 75 MG TAB PO SCH (09:00)
[2021-09-23] MEDS: CLOPIDOGREL 75 MG TAB PO SCH (11:19)
[2021-09-23] MEDS: SERTRALINE HCL 25 MG TABLET PO SCH (11:19)
[2021-09-23 17:29] VITALS: BP 125/59
[2021-09-23] MEDS: ROSUVASTATIN 10 MG TAB (CRESTOR) PO SCH (20:15)
[2021-09-24 06:47] VITALS: BP 135/61
[2021-09-24] MEDS: METAMUCIL (PSYLLIUM) PACKET PO SCH (08:33)
[2021-09-24] MEDS: clonazePAM 0.5 MG TAB PO SCH (08:33)
[2021-09-24] MEDS: FOLIC ACID 1 MG TAB PO SCH (08:34)
[2021-09-24] MEDS: OMEPRAZOLE 20MG CAP PO SCH (08:34)
[2021-09-24] MEDS: SERTRALINE HCL 25 MG TABLET PO SCH (08:34)
[2021-09-24] MEDS: THIAMINE 100 MG TAB PO SCH (08:34)
[2021-09-24] MEDS: MULTIVITAMINS/MINERALS THERAP 1 TAB PO SCH (08:34)
[2021-09-24] MEDS: ASPIRIN 81MG ENTERIC TABLET PO SCH (08:34)
[2021-09-24] MEDS: CLOPIDOGREL 75 MG TAB PO SCH (11:50)
[2021-09-24 18:35] VITALS: BP 132/66
[2021-09-24] MEDS: traZODone 50 MG TAB PO PRN (20:49)
[2021-09-24] MEDS: ROSUVASTATIN 10 MG TAB (CRESTOR) PO SCH (20:50)
[2021-09-25 06:29] VITALS: BP 137/63
[2021-09-25] MEDS: clonazePAM 0.5 MG TAB PO SCH (08:10)
[2021-09-25] MEDS: ASPIRIN 81MG ENTERIC TABLET PO SCH (08:10)
[2021-09-25] MEDS: SERTRALINE HCL 25 MG TABLET PO SCH (08:11)
[2021-09-25] MEDS: THIAMINE 100 MG TAB PO SCH (08:11)
[2021-09-25] MEDS: OMEPRAZOLE 20MG CAP PO SCH (08:11)
[2021-09-25] MEDS: MULTIVITAMINS/MINERALS THERAP 1 TAB PO SCH (08:11)
[2021-09-25] MEDS: METAMUCIL (PSYLLIUM) PACKET PO SCH (08:11)
[2021-09-25] MEDS: FOLIC ACID 1 MG TAB PO SCH (08:11)
[2021-09-25] MEDS: CLOPIDOGREL 75 MG TAB PO SCH (11:54)
[2021-09-25 16:12] VITALS: BP_SYST 132; BP_SYST 135; BP_DIAS 63; BP_DIAS 66
[2021-09-25] MEDS: ROSUVASTATIN 10 MG TAB (CRESTOR) PO SCH (20:22)
[2021-09-26 06:38] VITALS: BP 122/59
[2021-09-26] MEDS: SERTRALINE HCL 25 MG TABLET PO SCH (09:00)
[2021-09-26] MEDS: FOLIC ACID 1 MG TAB PO SCH (09:39)
[2021-09-26] MEDS: THIAMINE 100 MG TAB PO SCH (09:39)
[2021-09-26] MEDS: MULTIVITAMINS/MINERALS THERAP 1 TAB PO SCH (09:39)
[2021-09-26] MEDS: OMEPRAZOLE 20MG CAP PO SCH (09:39)
[2021-09-26] MEDS: METAMUCIL (PSYLLIUM) PACKET PO SCH (09:39)
[2021-09-26] MEDS: ASPIRIN 81MG ENTERIC TABLET PO SCH (09:39)
[2021-09-26] MEDS: clonazePAM 0.5 MG TAB PO SCH (09:40)
[2021-09-26] MEDS ORDERED: LORazepam 2 MG TAB PO PRN (10:10)
[2021-09-26 11:00] VITALS: BP 117/68
[2021-09-26] MEDS: CLOPIDOGREL 75 MG TAB PO SCH (11:23)
[2021-09-26] MEDS: ESCITALOPRAM OXALATE 5MG TABLET (LEXAPRO) PO SCH (11:23)
[2021-09-26 16:18] VITALS: BP 105/89
[2021-09-26 18:24] VITALS: BP 119/77
[2021-09-26] MEDS: ROSUVASTATIN 10 MG TAB (CRESTOR) PO SCH (20:41)
[2021-09-26] MEDS: PILL CUTTER 1 EACH XX PRN (20:41)
[2021-09-26] MEDS: traZODone 50 MG TAB PO PRN (20:42)
[2021-09-27 06:24] VITALS: BP 130/63
[2021-09-27] MEDS: clonazePAM 0.5 MG TAB PO SCH (08:42)
[2021-09-27] MEDS: PILL CUTTER 1 EACH XX PRN (08:42)
[2021-09-27] MEDS: THIAMINE 100 MG TAB PO SCH (08:43)
[2021-09-27] MEDS: MULTIVITAMINS/MINERALS THERAP 1 TAB PO SCH (08:43)
[2021-09-27] MEDS: ASPIRIN 81MG ENTERIC TABLET PO SCH (08:43)
[2021-09-27] MEDS: ESCITALOPRAM OXALATE 5MG TABLET (LEXAPRO) PO SCH (08:43)
[2021-09-27] MEDS: METAMUCIL (PSYLLIUM) PACKET PO SCH (08:43)
[2021-09-27] MEDS: OMEPRAZOLE 20MG CAP PO SCH (08:44)
[2021-09-27] MEDS: FOLIC ACID 1 MG TAB PO SCH (08:44)
[2021-09-27] MEDS ORDERED: MULTIVITAMINS/MINERALS THERAP 1 TAB PO SCH (09:00)
[2021-09-27] MEDS ORDERED: ESCITALOPRAM OXALATE 10 MG TAB (LEXAPRO) PO SCH (09:00)
[2021-09-27 10:45] VITALS: BP 115/67
[2021-09-27] MEDS: DICLOFENAC EPOLAMINE 1.3 % PATCH TOP SCH ×2 (10:49→20:50)
[2021-09-27] MEDS: CLOPIDOGREL 75 MG TAB PO SCH (11:14)
[2021-09-27 16:40] VITALS: BP 120/61
[2021-09-27 17:45] VITALS: BP 142/82
[2021-09-27] MEDS: traZODone 50 MG TAB PO PRN (20:50)
[2021-09-27] MEDS: ROSUVASTATIN 10 MG TAB (CRESTOR) PO SCH (20:50)
[2021-09-28 06:35] VITALS: BP 120/58
[2021-09-28] MEDS: MULTIVITAMINS/MINERALS THERAP 1 TAB PO SCH (08:29)
[2021-09-28] MEDS: OMEPRAZOLE 20MG CAP PO SCH (08:29)
[2021-09-28] MEDS: THIAMINE 100 MG TAB PO SCH (08:29)
[2021-09-28] MEDS: ESCITALOPRAM OXALATE 5MG TABLET (LEXAPRO) PO SCH (08:29)
[2021-09-28] MEDS: METAMUCIL (PSYLLIUM) PACKET PO SCH (08:29)
[2021-09-28] MEDS: FOLIC ACID 1 MG TAB PO SCH (08:29)
[2021-09-28] MEDS: ASPIRIN 81MG ENTERIC TABLET PO SCH (08:30)
[2021-09-28] MEDS: clonazePAM 0.5 MG TAB PO SCH (08:30)
[2021-09-28] MEDS: PILL CUTTER 1 EACH XX PRN (08:31)
[2021-09-28] MEDS: DICLOFENAC EPOLAMINE 1.3 % PATCH TOP SCH ×2 (08:32→20:34)
[2021-09-28] MEDS ORDERED: IBUPROFEN 600MG TAB PO PRN (10:30)
[2021-09-28] MEDS ORDERED: hydrOXYzine 25 MG TAB PO PRN (10:40)
[2021-09-28] MEDS: CLOPIDOGREL 75 MG TAB PO SCH (11:24)
[2021-09-28 12:50] LABS: BASO # 0.1 10^3/uL (0.0-0.2); BASO % 0.7 % (0.0-1.0); EOS # 0.1 10^3/uL (0.0-0.5); EOS % 0.9 % (0.0-3.0); HEMATOCRIT 38.6 % (42.0-52.0); HEMOGLOBIN 13.3 g/dl (13.5-17.5); LYMPH # 1.7 10^3/uL (1.5-5.0); LYMPH % 23.5 % (24.0-44.0); MEAN CORPUSCULAR HEMOGLOBIN 32.7 pg (27.0-33.0); MEAN CORPUSCULAR HGB CONC 34.5 g/dl (32.0-36.5); MEAN CORPUSCULAR VOLUME 94.8 fl (80.0-96.0); MONO # 0.6 10^3/uL (0.0-0.8); MONO % 9.1 % (2.0-8.0); NEUTROPHILS # 4.6 10^3/uL (1.5-8.5); NEUTROPHILS % 65.5 % (36.0-66.0); PLATELET COUNT, AUTOMATED 200 10^3/uL (150-450); RED BLOOD COUNT 4.07 10^6/uL (4.30-6.10)
[2021-09-28 13:19] LABS: BLOOD UREA NITROGEN 17 MG/DL (7-18); CALCIUM LEVEL 9.6 MG/DL (8.8-10.2); CARBON DIOXIDE LEVEL 30 MEQ/L (21-32); CHLORIDE LEVEL 103 MEQ/L (98-107); CREATININE FOR GFR 0.88 MG/DL (0.70-1.30); GLOMERULAR FILTRATION RATE > 60.0 (>42); GLUCOSE, FASTING 84 MG/DL (70-100); POTASSIUM SERUM 4.8 MEQ/L (3.5-5.1); SODIUM LEVEL 137 MEQ/L (136-145)
[2021-09-28 17:53] VITALS: BP 138/73
[2021-09-28] MEDS: ROSUVASTATIN 10 MG TAB (CRESTOR) PO SCH (20:34)
[2021-09-28] MEDS: traZODone 50 MG TAB PO PRN (20:34)
[2021-09-28] MEDS ORDERED: IMIPRAMINE 25 MG PO SCH (21:00)
[2021-09-29 06:49] VITALS: BP 120/61
[2021-09-29 08:16] VITALS: BP 120/61
[2021-09-29] MEDS ORDERED: MIRALAX *UNIT DOSE* 17GM PACKET PO SCH (09:00)
[2021-09-29] MEDS: clonazePAM 0.5 MG TAB PO SCH (09:14)
[2021-09-29] MEDS: PILL CUTTER 1 EACH XX PRN (09:14)
[2021-09-29] MEDS: ASPIRIN 81MG ENTERIC TABLET PO SCH (09:15)
[2021-09-29] MEDS: FOLIC ACID 1 MG TAB PO SCH (09:16)
[2021-09-29] MEDS: OMEPRAZOLE 20MG CAP PO SCH (09:16)
[2021-09-29] MEDS: ESCITALOPRAM OXALATE 5MG TABLET (LEXAPRO) PO SCH (09:16)
[2021-09-29] MEDS: THIAMINE 100 MG TAB PO SCH (09:16)
[2021-09-29] MEDS: MULTIVITAMINS/MINERALS THERAP 1 TAB PO SCH (09:16)
[2021-09-29] MEDS: DICLOFENAC EPOLAMINE 1.3 % PATCH TOP SCH (09:20)
[2021-09-29] MEDS ORDERED: TRAZ-252 PO (09:35)
[2021-09-29] MEDS ORDERED: IMIP25TA3 PO (09:35)
[2021-09-29] MEDS ORDERED: CLON0.5T2 PO (09:35)
[2021-09-29] MEDS ORDERED: HYDR-3363 PO (09:35)
[2021-09-29] MEDS ORDERED: LEXA5TAB13 PO (09:35)
[2021-09-29] MEDS: CLOPIDOGREL 75 MG TAB PO SCH (11:57)
== END 2021-09-29 13:45 | disposition home or self-care (01) | DRG 881 ==
LOC: M PSY 13:23
PROVIDERS: ADMIT Psychiatry & Neurology Psychiatry; ATTEND Student in an Organized Health Care Education/Training Program
DX: F32.A Depression, unspecified (principal); F41.8 Other specified anxiety disorders; Z79.899 Other long term (current) drug therapy; Z79.82 Long term (current) use of aspirin; Z88.0 Allergy status to penicillin; Z91.013 Allergy to seafood; Z91.030 Bee allergy status; Z86.73 Personal history of transient ischemic attack (TIA), and cerebral infarction without residual deficits; K21.9 Gastro-esophageal reflux disease without esophagitis; Z95.0 Presence of cardiac pacemaker; F10.10 Alcohol abuse, uncomplicated

== ENCOUNTER → 2022-03-09 | Outpatient (CLI) | payer MEDICARE ==
[~2022-03-09] MED LIST changes: +FOLI1TAB11 PO; +HYDR-3363 PO; +IMIP25TA3 PO; +LEXA5TAB13 PO; +THIA100TA PO; +TRAZ-252 PO
== END ==
LOC: M RAD 07:42
PROVIDERS: ATTEND Surgery
DX: K55.1 Chronic vascular disorders of intestine (principal)

== ENCOUNTER → 2023-10-19 | Outpatient (CLI) | payer MEDICARE ==
[~2023-10-19] MED LIST changes: +GASTROGRAFIN SOLUTION 30ML As Ordered ONE; +ISOVUE-370 76% 100ML VIAL As Ordered ONE
== END ==
LOC: M RAD 11:38
PROVIDERS: ATTEND Surgery
DX: K57.30 Diverticulosis of large intestine without perforation or abscess without bleeding (principal); K40.90 Unilateral inguinal hernia, without obstruction or gangrene, not specified as recurrent; K43.9 Ventral hernia without obstruction or gangrene
CPT/HCPCS: 74177; Q9963; Q9967